=== PATIENT | female | born 1955 | race Caucasian/White ===

== ENCOUNTER 2022-01-28 14:34 | Inpatient (IN) | payer OTHER ==
[~2022-01-28] VITALS: Ht 167.6 cm; Wt 83.5 kg
[2022-01-28 14:34] VITALS: BP 92/39
--- NOTE | 2022-01-28 14:35 | NUR ---
TO ED 3 VIA EMS GURNEY.
[2022-01-28] MEDS ORDERED: cefTRIAXone 1,000 MG in DEXT 5% MINI-BAG PLUS 50 ML IV ONE (14:40)
--- NOTE | 2022-01-28 14:40 | NUR ---
INITAL CONTACT WITH PATIENT, BIB EMS GURNEY FOR INCREASE IN SOB. TACHYPNIC ON ARRIVAL. RHONCI HEARD BILATERALLY. PT IS ALERT TO NAME ONLY. IN BED FOR MSE.
[2022-01-28] MEDS ORDERED: methylPREDNISolone SS 125 MG/2 ML VIAL IVP ONE (14:50)
[2022-01-28] MEDS ORDERED: ALBUTEROL SULFATE/IPRATROPIU 3 ML SOL IH ONE (14:50)
[2022-01-28] MEDS ORDERED: ALBUTEROL 0.083% 2.5 MG/3 ML NEBU INH ONE (14:50)
[2022-01-28] MEDS ORDERED: cefTRIAXone 1,000 MG VIAL ONE (15:06)
[2022-01-28 15:15] LABS: HEMATOCRIT 24.7 % (36-48); HEMOGLOBIN 7.8 g/dL (12.0-16.0); MEAN CORPUSCULAR HEMOGLOBIN 28 pg (27-31); MEAN CORPUSCULAR HGB CONC 32 g/dL (33-37); PLATELET COUNT (AUTO) 414 K/uL (140-450); RED BLOOD CELL COUNT(AUTO) 2.74 MIL/uL (4.20-5.40); RED CELL DISTRIBUTION WIDTH 16.7 % (11.6-13.7); WHITE BLOOD COUNT (AUTO) 24.8 K/uL (4.8-10.8)
[2022-01-28 15:50] LABS: LYMPHOCYTES % (MANUAL) 11 % (20-46); MONOCYTES % (MANUAL) 1 % (5-12); MYELOCYTES % 1 % (0-0)
[2022-01-28 15:51] LABS: ALBUMIN 1.6 g/dL (3.4-5.0); ANION GAP 17.4 (8-16); CREATININE 1.4 mg/dL (0.6-1.3); POTASSIUM 5.4 mmol/L (3.5-5.1); TOTAL BILIRUBIN 0.5 mg/dL (0.0-1.0)
--- NOTE | 2022-01-28 16:55 | NUR ---
# 16 FR [place] catheter with 10 ml utilizing sterile technique. Immediate return of 1000 ml DARK CLOUDY urine noted. Bedside drainage bag placed below level of bladder. Urine sample collected and sent to lab. Pt tolerated procedure WELL.
[2022-01-28] MEDS ORDERED: MAGNESIUM OXIDE 400 MG TAB PO PRN (17:55)
[2022-01-28] MEDS ORDERED: ACETAMINOPHEN 325 MG TAB PO PRN (17:55)
[2022-01-28] MEDS ORDERED: HYDROcodone/APAP 5/325 MG 1 TAB TAB PO PRN (17:55)
[2022-01-28 18:15] LABS: BILIRUBIN,URINE 1+ (NEGATIVE); BLOOD, URINE 3+ (NEGATIVE); COLOR,URINE YELLOW (YELLOW); LEUKOCYTE ESTERASE ,URINE 3+ (NEGATIVE); NITRITE, URINE NEGATIVE (NEGATIVE); UGLUCOSE NEGATIVE (NEGATIVE)
[2022-01-28 18:23] LABS: APPEARANCE,URINE CLOUDY (CLEAR)
--- NOTE | 2022-01-28 18:30 | NUR ---
PT IN BED, PENDING ADMISSION. NO NEW ORDERS AT THIS TIME.
[2022-01-28 19:08] LABS: RBC,URINE 0-5 /HPF (0-5); WBC,URINE 80-100 /HPF (0-5)
--- NOTE | 2022-01-28 19:20 | NUR ---
REPORT TO RADHA WALL. ALL CARE TRASNFERRED.
[2022-01-28] MEDS ORDERED: GABA300C PO (21:10)
[2022-01-28] MEDS ORDERED: MORP15TE33 PO (21:10)
[2022-01-28] MEDS ORDERED: MULT-2171 PO (21:10)
[2022-01-28] MEDS ORDERED: OXYC5TAB4 PO (21:10)
[2022-01-28] MEDS ORDERED: ASCO500T95 PO (21:10)
[2022-01-28] MEDS ORDERED: METF-1139 PO (21:10)
[2022-01-28] MEDS ORDERED: SENN-73 PO (21:10)
[2022-01-28] MEDS ORDERED: IPRA3AMP2 IH (21:10)
[2022-01-28] MEDS ORDERED: AZITHROMYCIN 500 MG INJ VIAL IV ONE (21:12)
[2022-01-28] MEDS: NACL 0.9% 1,000 ML IV SCH (21:34)
[2022-01-28] MEDS: AZITHROMYCIN 500 MG in DEXTROSE 5% 250 ML IV SCH (21:37)
[2022-01-29] MEDS: MORPHINE SULFATE 4 MG/ML SYR IVP PRN ×4 (00:35→23:50)
--- NOTE | 2022-01-29 02:21 | NUR ---
PT RESTING IN BED AT THIS TIME
--- NOTE | 2022-01-29 04:10 | NUR ---
CHANGED PT AND REPOSITIONED HER. ALL NEEDS ADDRESSED AT THIS TIME.
[2022-01-29 06:47] LABS: ALBUMIN 1.5 g/dL (3.4-5.0); CARBON DIOXIDE 20.1 mmol/L (21-32); CREATININE 1.2 mg/dL (0.6-1.3); POTASSIUM 5.1 mmol/L (3.5-5.1); TOTAL BILIRUBIN 0.4 mg/dL (0.0-1.0)
[2022-01-29 08:22] LABS: BASOPHILS # (AUTO) 0.1 K/uL (0.00-0.22); BASOPHILS % (AUTO) 0.5 % (0.0-2.0); EOSINOPHILS # (AUTO) 0.7 K/uL (0-0.4); EOSINOPHILS % (AUTO) 2.9 % (0.0-4.0); HEMATOCRIT 23.2 % (36-48); HEMOGLOBIN 7.7 g/dL (12.0-16.0); LYMPHOCYTES # (AUTO) 1.2 K/uL (2.5-16.5); LYMPHOCYTES % (AUTO) 4.9 % (20.5-51.1); MEAN CORPUSCULAR HEMOGLOBIN 30 pg (27-31); MEAN CORPUSCULAR HGB CONC 33 g/dL (33-37); MEAN CORPUSCULAR VOLUME 90.5 fL (80-94); MONOCYTES # (AUTO) 0.5 K/uL (0.8-1.0); MONOCYTES % (AUTO) 2.2 % (1.7-9.3); NEUTROPHILS # (AUTO) 22.2 K/uL (1.8-7.7); NEUTROPHILS % (AUTO) 89.5 % (42.2-75.2); PLATELET COUNT (AUTO) 563 K/uL (140-450); RED BLOOD CELL COUNT(AUTO) 2.56 MIL/uL (4.20-5.40); RED CELL DISTRIBUTION WIDTH 16.5 % (11.6-13.7); WHITE BLOOD COUNT (AUTO) 24.7 K/uL (4.8-10.8)
--- NOTE | 2022-01-29 08:23 | NUR ---
Patient will be admitted to care of DR LITTLE. Admited to TELE. Will go to [id number]. Belongings list completed. Report to PAMELA GARCIA.
[2022-01-29 08:40] VITALS: BP 117/54
--- NOTE | 2022-01-29 08:40 | NUR ---
PT ARRIVED VIA GURNEY. REPORT GIVEN BY TONY GARCIA FROM ER. PT IS ALERT AND ORENTX3, ADMITTED FOR HYPOXIA. HX OF COPD, DEMENTIA, DM. PT IS CURRENTLY ON 2L OXYGEN VIA NC, HAS OSUNA CATHETER IN PLACE, DRAIN CLEAR YELLOW URINE. PT HAS IV ON LEFT HAND WITH 22G AND IV ON RIGHT HAND WITH 22G. IV ON LEFT SIDE IN INTACT AND PATENT, RUNNING NS AT 80ML/HR. IV ON RIGHT HAND DOES NOT WORK AT THIS TIME, WILL REMOVE SHORTLY. PT HAS STATE 4 ULCER ON SACRAL AREA, SKIN TEAR ON BOTH FEET AND SKIN ON LOWER EXTREMITIES. START ROCEPHIN 1000MG IN D5 50ML, 100ML/HR AT THIS TIME. PT IS STABLE.
--- NOTE | 2022-01-29 08:44 | NUR ---
PATIENT HAS BEEN SCREENED AND CATEGORIZED MODERATE NUTRITION RISK. PATIENT WILL BE SEEN WITHIN 3-5 DAYS OF ADMISSION. [address]
[2022-01-29] MEDS: DOCUSATE SODIUM 100 MG GELCAP PO SCH (08:45)
[2022-01-29] MEDS ORDERED: cefTRIAXone 1,000 MG VIAL ONE (08:48)
[2022-01-29] MEDS: NACL 0.9% 1,000 ML IV SCH ×2 (08:53→18:11)
[2022-01-29] MEDS: AZITHROMYCIN 500 MG in DEXTROSE 5% 250 ML IV SCH (10:19)
[2022-01-29] MEDS ORDERED: LORazepam 2 MG/ML VIAL IVP PRN (10:55)
--- NOTE | 2022-01-29 10:55 | NUR ---
INFORMED DR LITTLE PT IS VERY ANXIOUS AND CRYING CONSTANTLY, ORDERED ATIVAN 1MG IV Q 6 HOUR PRN FOR ANXIETY.
--- NOTE | 2022-01-29 11:17 | NUR ---
FNS CONSULT HAS BEEN RECEIVED FOR WOUNDS. PATIENT HAS BEEN RE-SCREENED HIGH RISK AND WILL BE SEEN TODAY. [address]
--- NOTE | 2022-01-29 11:22 | NUR ---
PT IS CRYING AND KICKING, STATED SHE IS PAIN IN HER BUTTOCK AREA, ADMINISTERED MORPHINE 4MG IVPUSH AT THIS TIME. Addendum: 01/29/22 at 1128 by Rigo Sierra RN BP WAS 117/89 PRIOR TO ADMIN MEDICATION. PT STATED PAIN 04/03
[2022-01-29 12:00] VITALS: BP 113/72
--- NOTE | 2022-01-29 13:24 | NUR ---
P.T. NOTES P.T. EVAL COMPLETED; REFER TO EVAL FOR DETAILS.
--- NOTE | 2022-01-29 13:55 | NUR ---
PT WAS DISRUPTIVE TO OTHER PT AND WAS MOVED TO ROOM 124A. DAUGHTER OF OTHER PATIENT COMPLAINING ABOUT THE PATIENT YELLING LOUDLY. PT IS UNABLE TO REDIRECT ATTENTION. PT DENIES PAIN. PT REFUSED TO EAT LUNCH, ONLY WANTS TO DRINK WATER. PT ATE A FEW BITES OF FOOD AND DRANK JUICE AND WATER. INFORMED INDUSTRIAL HYGIENIST AND SHE ADDED ENSURE TWICE DAILY AND BHUPENDRA, ALSO CHANGED IT TO CCHO 60 GRAM DIET.
--- NOTE | 2022-01-29 14:23 | NUR ---
01/29/22 RD INITIAL ASSESSMENT COMPLETED PLEASE REFER TO NUTRITION ASSESSMENT UNDER CARE ACTIVITY FOR ESTIMATED NUTRITIONAL NEEDS. 1. RECOMMEND CARDIAC/CCHO 60GM MECHANICAL SOFT DIET TO IMPROVE PO INTAKE 2. RECOMMEND GLUCERNA BID BHUPENDRA BID PER RD PROTOCOL 3. MONITOR PO INTAKE 4. RD TO FOLLOW-UP 2-3 DAYS; HIGH RISK [address]ILLICENT [address]
--- NOTE | 2022-01-29 14:57 | NUR ---
PT RESTING ON BED WITH 2L OXYGEN VIA NC, NO ACUTE DISTRESS NOTED. ALL SAFETY MEASURE IN PLACE, CALL LIGHT WITHIN REACH, WILL CONTINUE TO MONITOR.
--- NOTE | 2022-01-29 14:58 | NUR ---
WOUND CARE EVALUATION NOTE: SKIN ASSESSMENT DONE WITH PRIMARY RN ON THIS 66 Y/O PT ADMITTED TO [facility] WITH HYPOXIA AND INFECTED SACRALCOCCYX PRESSURE INJURY. PAST MEDICAL HX INCLUDES PAST MEDICAL HISTORY OF COPD, DEMENTIA, DM. ALL ABOVE INFORMATION OBTAINED FROM ADMISSION H&P. PT IS AWAKE VERBALIZES NEEDS, SKIN IS WARM AND DRY, BLE NO HAIR GROWTH, NO EDEMA. DORSAL PEDAL PULSES PRESENT AND NORMAL. CAPILLARY REFILLED <2 SEC. X 10 TOES. INCONTINENT OF BOWEL AND BLADDER. POC DISCUSSED WITH PT. PT WAS NOT PAYING ATTENTION. PT. CONTINUE TO CALLING FOR HELP DURING ASSESSMENT WHICH THER WERE 3 NURSING STAFF ATTENDING HER CARE.PLAN OF CARE DISCUSSED WITH PRIMARY RN AND CHARGE NURSE. GOAL IS TO PREVENT WOUND INFECTION WITH FECAL CROSS CONTAMINATION, POC DISCUSSED WITH DR. PEREZ WITH RECOMMENDATION OF SURGEON DEBRIDEMENT AND DIVERTING COLOSTOMY. INTEGUMENTARY: -MODERATE MOISTURE ASSOCIATED DERMATITIS WITH MULTIPLE SKIN EROSIONS FROM PERINEUM, BISI-ANAL AND EXTENDED TO BILATERAL MEDIAL AND POSTERIOR THIGHS, WOUND BEDS ARE RED AND MOIST, NO ODOR BISI-WOUND SKIN RD DENUDED, FURTHER DAMAGE INDICATED -PRESSURE INJURY STAGE 4 SACROCOCCYX INFECTED WOUND WITH ENTIRE MEASUREMENT INCLUDING BISI-WOUND SLOUGH/UN-STABLE ESCHAR TISSUE IS [id number] UNDERMINING 12 OCLOCK 3 CM AND TUNNEL WOUND TO 5 OCLOCK DIRECTION 9CM DEEP, WOUND BED 80% RED GRANULATION TISSUE, 20% SOFT YELLOW SLOUGH TISSUE, MODERATE AMOUNT PURULENT DRAINAGE,MILD ODOR, WOUND EDGE FLAT, BISI-WOUND SKIN UNSTABLE ESCHAR/SLOUGH TISSUE AND MAD EXTENDED TO BISI-ANAL -DTI LEFT LATERAL HEEL 3X2CM PURPLE WITH MUSHY INTACT SKIN RECOMMENDATIONS: -SURGEON CONSULT FOR DEBRIDEMENT AND POSSIBLE DIVERTING COLOSTOMY -BISI-CARE Q2H AND APPLY Z GUARD TO PERINEUM, BISI-ANAL BID AND PRN IF SOILING -APPLY Z GUARD TO BILATERAL MEDIAL AND POSTERIOR THIGHS BID AND PRN IF SOILING - CLEANSE SACRALCOCCYX WITH WOUND CLEANSING SOLUTION AND PACK WOUND WITH ONE PIECE MOIST HYDRAGEL KERLIX ROLL, COVER WITH DRY ABD PAD DRESSING SECURED WITH TAPE QD AND PRN IF SOILING -APPLY FORM DRESSING TO LEFT HEEL Q3D AND PRN IF SOILING AND OFFLOAD AREA -POSITIONING: TURN AND REPOSITION PATIENT Q 2H OR SOONER USE PILLOWS TO KEEP BONY PROMINENCES FROM DIRECT CONTACT WITH SURFACES USE REPOSITIONING WEDGES TO PROVIDE 30-DEGREE ANGLE FOR SIDE LYING POSITIONS OFFLOADING OR FOAM DRESSING TO ALL TUBING TO PREVENT MEDICAL DEVICES RELATED PRESSURE INJURY -RE-EVALUATING AND MANAGING INCONTINENCE MONITOR SKIN CONDITION DURING POSITION CHANGE DO NOT MASSAGE REDNESS, BONY PROMINENCES FREQUENT BISI-CARE AND PROVIDE BARRIER CREAMS PRN IF SOILING MOISTURE CONTROL BY OFFER BED TURNER/URINAL /ABSORBENT PAD TO WICK AND HOLD MOISTURE KEEP SKIN DRY AND PROTECT FROM FRICTION -MANAGE FRICTION/SHEAR/MOBILITY KEEP HOB AT THE LOWEST LEVEL OF ELEVATION NO MORE THAN 30 DEGREES UNLESS OTHERWISE CONTRAINDICATED USE LIFT SHEET OR TRANSFER DEVICE TO MOVE PATIENT AND PREVENT LATERAL SHEER. PROTECT HEELS, ELBOWS BONY PROMINENCES WITH SKIN BERRIES OR FOAM DRESSING IF EXPOSED TO FRICTION OFFLOAD BILATERAL HEELS BY PLACING PILLOWS UNDER CALVES AT ALL TIMES, UNLESS OTHERWISE CONTRAINDICATED -PRESSURE REDISTRIBUTION SURFACE THERAPY ALAN ISOFLEX JOSE ALFREDO MATTRESS -NUTRITION: PLEASE FOLLOW RD RECOMMENDATIONS AND OFFER NUTRITION SUPPLEMENTS IF ORDERED.
[2022-01-29] MEDS ORDERED: LORazepam 1 MG TAB PO PRN (15:10)
[2022-01-29] MEDS: FOAM DRESSING TP SCH (15:34)
--- NOTE | 2022-01-29 15:39 | NUR ---
INFORMED DR. LITTLE ABOUT THE PT'S EXCESSIVE FLUID INTAKE. PT KEEPS REQUESTING WATER EVERY TEN MIN. DR. LITTLE PUT ORDER FOR FLUID RESTRICTION OF 2000 ML/DAY.
[2022-01-29 16:00] VITALS: BP 100/61
--- NOTE | 2022-01-29 16:39 | NUR ---
PT IS VERY AGITATED, CRYING HYSTERICALLY. PT WAS GIVEN ATIVAN FOR ANXIETY. BP IS 105/65 PRIOR TO ADMINISTRATION OF MEDICATION.
--- NOTE | 2022-01-29 17:30 | NUR ---
PT IS ASKING FOR MORE WATER, INFORMED PT THAT MD PLACED HER ON FLUID RESTRICTION TO 2L PER DAY. PT IS MADE AWARE AT THIS TIME. PT IS RESTING ON BED, ON 2L OXYGEN VIA NC, NO DISTRESS NOTED. ALL SAFETY MEASURE IN PLACE, CALL LIGHT WITHIN REACH, WILL CONTINUE TO MONITOR.
--- NOTE | 2022-01-29 18:51 | NUR ---
CHECKED PT'S BLOOD SUGAR DUE TO THE EXCESSIVE WATER INTAKE. BLOOD SUGAR WAS 283. INFORMED DR. LITTLE AND ASKED IF WE COULD ADD THE INSULIN SLIDING SCALE AND ACCUCHECKS. WILL WAIT FOR RESPONSE.
--- NOTE | 2022-01-29 18:56 | NUR ---
PT RESTING ON BED, NO ACUTE DISTRESS NOTED, WILL ENDORSE TO MASONRY TEACHER FOR CONTINUE CARE. ALL SAFETY MEASURE IN PLACE, CALL LIGHT WITHIN REACH, WILL CONTINUE TO MONITOR.
--- NOTE | 2022-01-29 19:17 | NUR ---
ENDORSED TO SENIOR PROJECT ENGINEER NURSE FOR CONTINUITY OF CARE. PT IS STABLE. PLAN OF CARE DISCUSSED. ENDORSED BS OF 283 TO SENIOR PROJECT ENGINEER NURSE, ASKED HIM TO FOLLOW UP WITH THE MESSAGE THAT WAS SENT TO DR. LITTLE FOR SLIDING SCALE AND ACCUCHECK.
[2022-01-29 20:00] VITALS: BP 89/47
[2022-01-29] MEDS ORDERED: DEXTROSE 50% 50 ML SYR IVP PRN (20:35)
[2022-01-29] MEDS: BLOOD GLUCOSE MONITORING 1 DEV DEV FS SCH (21:58)
[2022-01-30] VITALS: BP 91/51
[2022-01-30] MEDS: Z-GUARD PASTE TP SCH ×2 (00:23→12:05)
[2022-01-30 04:00] VITALS: BP 92/53
[2022-01-30 06:33] LABS: HEMATOCRIT 24.5 % (36-48); HEMOGLOBIN 7.7 g/dL (12.0-16.0); MEAN CORPUSCULAR HEMOGLOBIN 28 pg (27-31); MEAN CORPUSCULAR HGB CONC 32 g/dL (33-37); MEAN CORPUSCULAR VOLUME 89.2 fL (80-94); PLATELET COUNT (AUTO) 400 K/uL (140-450); RED BLOOD CELL COUNT(AUTO) 2.75 MIL/uL (4.20-5.40); RED CELL DISTRIBUTION WIDTH 16.4 % (11.6-13.7)
[2022-01-30 06:42] LABS: ALBUMIN 1.4 g/dL (3.4-5.0); ANION GAP 10.6 (8-16); CARBON DIOXIDE 22.1 mmol/L (21-32); CREATININE 0.6 mg/dL (0.6-1.3); MAGNESIUM 2.2 mg/dL (1.8-2.4); POTASSIUM 3.7 mmol/L (3.5-5.1); TOTAL BILIRUBIN 0.3 mg/dL (0.0-1.0)
[2022-01-30] MEDS: NACL 0.9% 1,000 ML IV SCH ×2 (06:47→19:55)
[2022-01-30] MEDS: BLOOD GLUCOSE MONITORING 1 DEV DEV FS SCH ×4 (06:47→21:41)
--- NOTE | 2022-01-30 07:15 | NUR ---
RECEIVED REPORT FROM CUSTOMER SUPPORT CONSULTANT FOR CONTINUITY CARE. PT RESTING ON BED, MUMBLING AND YELLING PERIOD. PT ALERT AND ORIENT X2. PT ON 2L OXYGEN VIA NC. OSUNA CATHETER IN PLACE, IV ON LEFT HAND INTACT AND PATENT. POINT OF CARE DISCUSSED, ALL SAFETY MEASURE IN PLACE, CALL LIGHT WITHIN REACH, WILL CONTINUE TO MONITOR.
[2022-01-30 07:49] LABS: WHITE BLOOD COUNT (AUTO) 31.4 K/uL (4.8-10.8)
[2022-01-30 07:50] LABS: BASOPHILS % (AUTO) 0.2 % (0.0-2.0); EOSINOPHILS % (AUTO) 0.1 % (0.0-4.0); LYMPHOCYTES # (AUTO) 1.3 K/uL (2.5-16.5); LYMPHOCYTES % (AUTO) 4.1 % (20.5-51.1); MONOCYTES % (AUTO) 3.4 % (1.7-9.3); NEUTROPHILS # (AUTO) 28.8 K/uL (1.8-7.7); NEUTROPHILS % (AUTO) 92.2 % (42.2-75.2)
[2022-01-30 07:52] LABS: LYMPHOCYTES % (MANUAL) 5 % (20-46); MONOCYTES % (MANUAL) 3 % (5-12)
[2022-01-30 07:53] LABS: PLATELET COUNT,MANUAL 399 K/uL (150-450)
--- NOTE | 2022-01-30 07:54 | NUR ---
NOTIFIED DR LITTLE REGARDING CRITICAL LAB VALUE FOR WBC 31.2, WAITING MD TO CALL BACK FOR ORDERS.
[2022-01-30 08:00] VITALS: BP 108/57
[2022-01-30] MEDS: DOCUSATE SODIUM 100 MG GELCAP PO SCH (08:07)
--- NOTE | 2022-01-30 08:15 | NUR ---
MEDICATION ROCEPHIN ADMINISTERED VIA IV PER MD ORDERED AT THIS TIME. PT TOLERATED WELL. PT ORIENT AND ALERT X2. PT CURRENT ON CONTACT PRECAUTION FOR POSITIVE MRSA. BACTROBAN NASAL APPLIED TO NOSE MD ORDERED. CHLORHEXIDINE GLUCONATE 2% APPLIED TO BODY ORDERED. ALL SAFETY MEASURE IN PLACE, CALL LIGHT WITHIN REACH, WILL CONTINUE TO MONITOR.
--- NOTE | 2022-01-30 08:17 | NUR ---
REPORT TO DR LITTLE PT HAS CRITICAL LAB RESULT CAME BACK POSITIVE FOR MRSA, WILL PLACE PT ON CONTACT PRECAUTION.
[2022-01-30] MEDS: CHLORHEXADINE GLUC 2% CLOTH TP SCH (08:54)
[2022-01-30] MEDS: AZITHROMYCIN 500 MG in DEXTROSE 5% 250 ML IV SCH (08:54)
[2022-01-30] MEDS: MUPIROCIN CA NASAL 2% 1GM TUBE NS SCH (08:55)
--- NOTE | 2022-01-30 09:00 | NUR ---
MEDICATION ADMINISTERED PER MD ORDER, PT IS TOLERATED WELL. PT ON 2L OXYGEN VIA NC, NO SOB NOTED. ALL SAFETY MEASURE IN PLACE, CALL LIGHT WITHIN REACH, WILL CONTINUE TO MONITOR.
[2022-01-30] MEDS ORDERED: VANCOMYCIN PER PHARMACY MC PRN (09:20)
[2022-01-30] MEDS: VANCOMYCIN 750 MG in DEXTROSE 5% 250 ML IV SCH ×2 (10:43→23:00)
--- NOTE | 2022-01-30 11:00 | NUR ---
PT RESTING ON BED, ALERT AND ORIENT X2, PT ASK FOR WATER, ASSIST PT DRINK WATER, REPOSITIONED PT. ALL SAFETY MEASURE IN PLACE, CALL LIGHT WITHIN REACH, WILL CONTINUE TO MONITOR.
--- NOTE | 2022-01-30 11:30 | NUR ---
BS 198, ADMINISTERED 2 UNIT INSULIN ORDERED.
[2022-01-30] MEDS: INSULIN LISPRO SLIDING SCALE 100 UNITS/ML VIAL SUBQ PRN ×3 (11:39→21:42)
[2022-01-30 12:00] VITALS: BP 91/52
[2022-01-30] MEDS: SKINTEGRITY HYDROGEL TP SCH (12:05)
--- NOTE | 2022-01-30 12:14 | NUR ---
CLEANED PT AND APPLIED BACTROBAN PINT TO NARES AND APPLIED CHLORHEXIDINE GLUCONATE 2% TO PT'S BODY ORDERED, WILL CONTINUE ON CONTACT PRECAUTION, ALL SAFETY MEASURE IN PLACE, CALL LIGHT WITHIN REACH, WILL CONTINUE TO MONITOR.
--- NOTE | 2022-01-30 13:34 | NUR ---
RECEIVED REPORT FROM LAB PT IS POSITIVE FOR E COLI, NOTIFIED DR ANABEL MD SEE PT AT BEDSIDE. PLACED PT ON CONTACT PRECAUTION.
[2022-01-30] MEDS: MORPHINE SULFATE 4 MG/ML SYR IVP PRN (15:47)
--- NOTE | 2022-01-30 15:48 | NUR ---
PT STATES THE PAIN AT A SCALE OF 10/10 IN HER LEGS AND BACK. PT WAS GIVEN MORPHINE FOR PAIN. BP WAS 106/53 PRIOR TO ADMINISTRATION OF MEDICATION.
[2022-01-30 16:00] VITALS: BP 106/53
--- NOTE | 2022-01-30 17:15 | NUR ---
PT LYING ON BED, HAS PERIOD MUMBLING, ON 2L OXYGEN VIA NC, NO ACUTE DISTRESS NOTED AT THIS TIME, REPOSITIONED PT, EDUCATED PT TO USE CALL LIGHT IF SHE NEED ANY HELP. BS 222, WILL ADMINISTER INSULIN ORDERED.
--- NOTE | 2022-01-30 19:20 | NUR ---
ENDORSED PT TO BLEACH RANGE OPERATOR NURSE FOR CONTINUITY OF CARE. PT IS STABLE. PLAN OF CARE DISCUSSED.
--- NOTE | 2022-01-30 19:30 | NUR ---
RECEIVED BEDSIDE REPORT FROM DAY SHIFT RN FOR CONTINUITY OF CARE. PT IS AWAKE WITH CONFUSION. AAOX2 TO NAME AND PLACE. PT IS ON NC 2L BUT PT LIKES TO REMOVE IT. PT HAS FC DRAINING LIGHT JACQUES URINE. PT HAS LEFT HAND 22 GAUGE WITH NS 80 ML/HR. PT HAS SACRAL WOUND. PLAN OF CARED DISCUSSED. COMMUNICATION BOARD UPDATED. WILL CONTINUE TO MONITOR THE PT.
[2022-01-30 20:00] VITALS: BP 89/49
[2022-01-30] MEDS ORDERED: NACL 0.9% 500 ML IV ONE (20:45)
--- NOTE | 2022-01-30 20:50 | NUR ---
PT BP IS 88/49. MESSAGED DR. PEREZ. DOCTOR ORDERED NS 500ML BOLUS AND ALBUMIN 25% Q8H X3 DOSES IN 100ML.
[2022-01-30] MEDS: ALBUMIN HUMAN 25% 100 ML IV SCH (21:42)
[2022-01-31] VITALS: BP 96/45
[2022-01-31] MEDS: Z-GUARD PASTE TP SCH ×2 (01:11→14:09)
--- NOTE | 2022-01-31 02:03 | NUR ---
PT IS SLEEPING IN BED. PT IS ON RA NOT IN ANY ACUTE DISTRESS. IVF RUNNING PER MD ORDER. CALL LIGHT WITHIN REACH. ALL SAFETY MEASURES TAKEN. WILL CONTINUE TO MONITOR THE PT.
[2022-01-31 04:00] VITALS: BP 99/53
[2022-01-31] MEDS: ALBUMIN HUMAN 25% 100 ML IV SCH ×2 (05:18→14:07)
--- NOTE | 2022-01-31 05:25 | NUR ---
ALBUMEN GIVEN SCHEDULE. PT WAS CLEANED AND CHANGED. PT IS NOT IN ANY RESPIRATORY DISTRESS. CALL LIGHT WITHIN REACH. ALL SAFETY MEASURES TAKEN. WILL CONTINUE TO MONITOR THE PT.
[2022-01-31] MEDS: INSULIN LISPRO SLIDING SCALE 100 UNITS/ML VIAL SUBQ PRN (06:30)
[2022-01-31] MEDS: BLOOD GLUCOSE MONITORING 1 DEV DEV FS SCH ×4 (06:30→20:42)
--- NOTE | 2022-01-31 07:14 | NUR ---
ENDORSED PT TO DAY SHIFT RN FOR CONTINUITY OF CARE. PT IS STABLE.
[2022-01-31 08:00] VITALS: BP 120/45
--- NOTE | 2022-01-31 08:00 | NUR ---
RECEIVE ENDORSEMENT FROM PM SHIFT NURSE THAT PATIENT IN BED, AWAKE BUT CONFUSED. PIV L. HAND 24G IV NS @80ML/HR INFUSING. PATIENT IS ON 2 LITER FLUID RESTRICTION, 2 LITER OXYGEN VIA NC. STAGE 4 WOUND AT SACRAL/COCCYX. WILL CONTINUE TO MONITOR.
[2022-01-31] MEDS: MUPIROCIN CA NASAL 2% 1GM TUBE NS SCH (08:20)
[2022-01-31] MEDS: CHLORHEXADINE GLUC 2% CLOTH TP SCH (08:20)
[2022-01-31] MEDS: NACL 0.9% 1,000 ML IV SCH ×2 (08:25→20:21)
[2022-01-31 09:11] LABS: ALBUMIN 2.3 g/dL (3.4-5.0); ANION GAP 10.8 (8-16); CARBON DIOXIDE 21.5 mmol/L (21-32); CREATININE 0.5 mg/dL (0.6-1.3); MAGNESIUM 1.8 mg/dL (1.8-2.4); POTASSIUM 3.3 mmol/L (3.5-5.1); TOTAL BILIRUBIN 0.4 mg/dL (0.0-1.0)
[2022-01-31 09:51] LABS: HEMATOCRIT 23.7 % (36-48); HEMOGLOBIN 7.3 g/dL (12.0-16.0); MEAN CORPUSCULAR HEMOGLOBIN 27 pg (27-31); MEAN CORPUSCULAR HGB CONC 31 g/dL (33-37); MEAN CORPUSCULAR VOLUME 88.9 fL (80-94); PLATELET COUNT (AUTO) 366 K/uL (140-450); RED BLOOD CELL COUNT(AUTO) 2.67 MIL/uL (4.20-5.40); RED CELL DISTRIBUTION WIDTH 16.4 % (11.6-13.7); WHITE BLOOD COUNT (AUTO) 21.1 K/uL (4.8-10.8)
[2022-01-31] MEDS: DOCUSATE SODIUM 100 MG GELCAP PO SCH (09:57)
[2022-01-31 12:00] VITALS: BP 116/50
[2022-01-31] MEDS ORDERED: VANCOMYCIN 1,000 MG in DEXTROSE 5% 250 ML IV SCH (12:00)
[2022-01-31] MEDS: SKINTEGRITY HYDROGEL TP SCH (13:00)
[2022-01-31 13:50] LABS: BASOPHILS % (AUTO) 0.2 % (0.0-2.0); EOSINOPHILS % (AUTO) 0.2 % (0.0-4.0); LYMPHOCYTES % (AUTO) 7.8 % (20.5-51.1); MONOCYTES % (AUTO) 3.9 % (1.7-9.3); NEUTROPHILS % (AUTO) 87.9 % (42.2-75.2); PLATELET COUNT,MANUAL 378 K/uL (150-450)
[2022-01-31 13:51] LABS: LYMPHOCYTES # (AUTO) 1.6 K/uL (2.5-16.5); LYMPHOCYTES % (MANUAL) 8 % (20-46); MONOCYTES # (AUTO) 0.8 K/uL (0.8-1.0); MONOCYTES % (MANUAL) 7 % (5-12); NEUTROPHILS # (AUTO) 17.8 K/uL (1.8-7.7)
[2022-01-31 16:00] VITALS: BP 112/60
--- NOTE | 2022-01-31 19:49 | NUR ---
ENDORSE PT TO PM SHIFT NURSE THAT PATIENT IN BED, AWAKE BUT CONFUSED. PIV L. HAND 24G IV NS @80ML/HR INFUSING. PATIENT IS ON ROOM AIR AT THIS TIME (SUPPOSE ON 2 LITER OXYGEN VIA NC) 2 LITER FLUID RESTRICTION . STAGE 4 WOUND AT SACRAL/COCCYX DRESSING CHANGED
[2022-01-31 20:00] VITALS: BP 110/55
--- NOTE | 2022-01-31 20:21 | NUR ---
PATIENT WOULD NOT ALLOW ME TO CHECK O2 SATURATION. PATIENT IS CONFUSED. NO SOB NOTED
[2022-01-31] MEDS: POTASSIUM CHLORIDE 10 MEQ TABER PO PRN (20:22)
[2022-01-31] MEDS: MORPHINE SULFATE 4 MG/ML SYR IVP PRN (20:22)
[2022-01-31] MEDS: ERTAPENEM SODIUM 1,000 MG in NACL 0.9% 50 ML IV SCH (22:00)
[2022-02-01] VITALS: BP 142/84
[2022-02-01] MEDS: Z-GUARD PASTE TP SCH ×2 (00:12→13:07)
[2022-02-01] MEDS ORDERED: ERTAPENEM SODIUM 1,000 MG in NACL 0.9% 50 ML IV SCH (00:40)
[2022-02-01] MEDS ORDERED: MEROPENEM 500 MG in NACL 0.9% 50 ML IV SCH ×2 (03:00→05:00)
[2022-02-01 04:00] VITALS: BP 135/82
[2022-02-01] MEDS ORDERED: MEROPENEM 500 MG VIAL IV ONE (04:28)
[2022-02-01] MEDS: BLOOD GLUCOSE MONITORING 1 DEV DEV FS SCH ×4 (06:32→21:00)
[2022-02-01 07:34] LABS: ALBUMIN 2.3 g/dL (3.4-5.0); CARBON DIOXIDE 23.9 mmol/L (21-32); CREATININE 0.4 mg/dL (0.6-1.3); MAGNESIUM 1.4 mg/dL (1.8-2.4); TOTAL BILIRUBIN 0.6 mg/dL (0.0-1.0)
[2022-02-01 07:41] LABS: POTASSIUM 2.9 mmol/L (3.5-5.1)
[2022-02-01 07:53] LABS: BASOPHILS % (AUTO) 0.2 % (0.0-2.0); EOSINOPHILS % (AUTO) 0.3 % (0.0-4.0); HEMATOCRIT 27.5 % (36-48); HEMOGLOBIN 8.7 g/dL (12.0-16.0); LYMPHOCYTES % (AUTO) 11.3 % (20.5-51.1); MEAN CORPUSCULAR HEMOGLOBIN 27 pg (27-31); MEAN CORPUSCULAR HGB CONC 31 g/dL (33-37); MEAN CORPUSCULAR VOLUME 87.2 fL (80-94); MONOCYTES # (AUTO) 0.9 K/uL (0.8-1.0); MONOCYTES % (AUTO) 4.9 % (1.7-9.3); NEUTROPHILS % (AUTO) 83.3 % (42.2-75.2); PLATELET COUNT (AUTO) 413 K/uL (140-450); RED BLOOD CELL COUNT(AUTO) 3.16 MIL/uL (4.20-5.40); RED CELL DISTRIBUTION WIDTH 16.4 % (11.6-13.7)
[2022-02-01 08:00] VITALS: BP 165/72
[2022-02-01] MEDS: MUPIROCIN CA NASAL 2% 1GM TUBE NS SCH (08:10)
[2022-02-01] MEDS: CHLORHEXADINE GLUC 2% CLOTH TP SCH (08:10)
[2022-02-01] MEDS: DOCUSATE SODIUM 100 MG GELCAP PO SCH (08:11)
[2022-02-01] MEDS: KCL 20 MEQ/WATER INJ PREMIX 200 ML IV PRN (08:18)
[2022-02-01] MEDS: FOAM DRESSING TP SCH (09:16)
[2022-02-01] MEDS: NACL 0.9% 1,000 ML IV SCH ×2 (10:14→21:55)
[2022-02-01 12:00] VITALS: BP 144/72
[2022-02-01] MEDS: SKINTEGRITY HYDROGEL TP SCH (13:07)
[2022-02-01] MEDS: MEROPENEM 1,000 MG in NACL 0.9% 100 ML IV SCH ×2 (13:09→21:00)
--- NOTE | 2022-02-01 13:29 | NUR ---
DC [age] YRS OLD FEMALE PATIENT WAS ADMITTED FROM [facility] WITH A DX OF HYPOXIA. CXR SHOWED ATELECTASIS, RAPID COVID TEST NEGATIVE. ON O2 2L/NC SATING 96%. ADMINISTERED IVF, IV ABX MEROPENEM AND CONTINUED HOME MEDS. URINE CULTURE SHOWED ESBL OF THE URINE , CONTINUE WITH IV ABX. CONSULTED WITH SURGEON AND ID FOR SACRAL WOUND. DC PLAN TO RETURN TO [facility] WHEN STABLE. CM TO FOLLOW Addendum: 02/04/22 at 1058 by Patricia Mcgill RN DC PLANNING: PATIENT IS RETURNING TO [facility] ([facility]) ROOM 223 a NUMBER TO GIVE REPORT [phone]. ARRANGED TRANSPORT WITH [facility] [place] [facility] TIME 1400 NOTIFIED JORDY HAUSER. CM TO FOLLOW
--- NOTE | 2022-02-01 13:49 | NUR ---
02/01/22 RD INITIAL ASSESSMENT COMPLETED PLEASE REFER TO NUTRITION ASSESSMENT UNDER CARE ACTIVITY FOR ESTIMATED NUTRITIONAL NEEDS. 1. CONTINUE CARDIAC MECHANICAL SOFT DIET WITH GLUCERNA BID BHUPENDRA BID TOLERATED 2. CONTINUE TO MONITOR PO INTAKE 3. CONTINUE TO MONITOR BLOOD GLUCOSE LEVELS 4. RD TO FOLLOW-UP 2-3 DAYS, HIGH RISK [address]
[2022-02-01 16:00] VITALS: BP 151/89
[2022-02-01] MEDS: MAG SULF 2000 MG/WATER PREMIX 50 ML IV PRN (17:44)
--- NOTE | 2022-02-01 19:40 | NUR ---
ENDORSE PT TO PM SHIFT NURSE THAT PATIENT IN BED, AWAKE BUT CONFUSED. PIV L. HAND 24G IV NS @80ML/HR INFUSING. PATIENT IS ON ROOM AIR AT THIS TIME, ON 2 LITER FLUID RESTRICTION . STAGE 4 WOUND AT SACRAL/COCCYX DRESSING CHANGED
[2022-02-01 20:00] VITALS: BP 147/66
[2022-02-01] MEDS: LINEZOLID 600MG PREMIX 300 ML IV SCH (22:56)
[2022-02-01] MEDS: ONDANSETRON 4 MG/2 ML VIAL IVP PRN (23:33)
[2022-02-02] VITALS: BP 135/70
[2022-02-02] MEDS: MORPHINE SULFATE 4 MG/ML SYR IVP PRN ×3 (01:10→23:16)
[2022-02-02] MEDS: Z-GUARD PASTE TP SCH ×2 (01:52→13:00)
[2022-02-02 04:00] VITALS: BP 123/69
[2022-02-02] MEDS: MEROPENEM 1,000 MG in NACL 0.9% 100 ML IV SCH ×3 (05:08→21:50)
[2022-02-02 06:37] LABS: ALBUMIN 2.1 g/dL (3.4-5.0); ANION GAP 13.5 (8-16); CARBON DIOXIDE 25.1 mmol/L (21-32); CREATININE 0.4 mg/dL (0.6-1.3); MAGNESIUM 1.5 mg/dL (1.8-2.4); TOTAL BILIRUBIN 0.6 mg/dL (0.0-1.0)
[2022-02-02 06:44] LABS: POTASSIUM 2.6 mmol/L (3.5-5.1)
--- NOTE | 2022-02-02 06:56 | NUR ---
PATIENT HAS A CRITICAL VALUE POTASSIUM 2.6. MD Walden notified. Patient also has blood transfusion which was ordered 08/04 but was not put up there is no consent as patient is not capable of consenting. Patient HB 8.6.To pass on to AM shift RN to contact family on the issue of consent, OTHERWISE PATIENT IS STABLE WITH NORMAL VITALS
[2022-02-02 08:00] VITALS: BP 100/48
[2022-02-02] MEDS: CHLORHEXADINE GLUC 2% CLOTH TP SCH (08:20)
[2022-02-02] MEDS: MUPIROCIN CA NASAL 2% 1GM TUBE NS SCH (08:20)
--- NOTE | 2022-02-02 08:30 | NUR ---
RECEIVED REPORT FROM COMMUNITY AMBASSADOR NURSE FOR CONTINUITY OF CARE. PT AWAKE IN BED. BREATHING SYMMETRICAL ON ROOM AIR SATING AT 95% CALL LIGHT WITHIN REACH. ALL SAFETY MEASURES IN PLACE
[2022-02-02 09:21] LABS: BASOPHILS # (AUTO) 0.1 K/uL (0.00-0.22); BASOPHILS % (AUTO) 0.5 % (0.0-2.0); EOSINOPHILS # (AUTO) 0.1 K/uL (0-0.4); EOSINOPHILS % (AUTO) 0.3 % (0.0-4.0); HEMATOCRIT 28.3 % (36-48); HEMOGLOBIN 8.9 g/dL (12.0-16.0); LYMPHOCYTES # (AUTO) 1.5 K/uL (2.5-16.5); LYMPHOCYTES % (AUTO) 7.6 % (20.5-51.1); MEAN CORPUSCULAR HEMOGLOBIN 28 pg (27-31); MEAN CORPUSCULAR HGB CONC 32 g/dL (33-37); MONOCYTES # (AUTO) 0.9 K/uL (0.8-1.0); MONOCYTES % (AUTO) 4.6 % (1.7-9.3); NEUTROPHILS # (AUTO) 17.1 K/uL (1.8-7.7); PLATELET COUNT (AUTO) 388 K/uL (140-450); RED BLOOD CELL COUNT(AUTO) 3.18 MIL/uL (4.20-5.40); RED CELL DISTRIBUTION WIDTH 16.3 % (11.6-13.7); WHITE BLOOD COUNT (AUTO) 19.6 K/uL (4.8-10.8)
--- NOTE | 2022-02-02 09:32 | NUR ---
PT TRANSFERRED TO [facility]
[2022-02-02] MEDS: ONDANSETRON 4 MG/2 ML VIAL IVP PRN (09:41)
[2022-02-02] MEDS: LINEZOLID 600MG PREMIX 300 ML IV SCH (09:45)
[2022-02-02] MEDS: DOCUSATE SODIUM 100 MG GELCAP PO SCH (09:45)
[2022-02-02] MEDS: BLOOD GLUCOSE MONITORING 1 DEV DEV FS SCH ×4 (09:50→21:53)
--- NOTE | 2022-02-02 10:45 | NUR ---
FDI REPORT RECEIVED NOT APPLICABLE D/T PT FROM [facility]. [address]
[2022-02-02] MEDS: NACL 0.9% 1,000 ML IV SCH ×2 (11:10→22:59)
[2022-02-02] MEDS: MAG SULF 2000 MG/WATER PREMIX 50 ML IV PRN (11:11)
[2022-02-02 12:00] VITALS: BP 141/71
[2022-02-02] MEDS ORDERED: POTASSIUM CHLORIDE 10 MEQ TABER PO SCH (12:00)
--- NOTE | 2022-02-02 12:06 | NUR ---
DR TURNER MADE AWARE THAT PT REFUSED PO KDUR TABLETS EARLIER, ORDER MADE.
[2022-02-02] MEDS: SKINTEGRITY HYDROGEL TP SCH (13:00)
[2022-02-02] MEDS: INSULIN LISPRO SLIDING SCALE 100 UNITS/ML VIAL SUBQ PRN (13:17)
[2022-02-02] MEDS: KCL 20 MEQ/WATER INJ PREMIX 200 ML IV PRN (15:45)
--- NOTE | 2022-02-02 15:46 | NUR ---
1ST BAG OF K RIDER INFUSING FOR K LEVEL 2.6
[2022-02-02 16:00] VITALS: BP 124/56
[2022-02-02] MEDS ORDERED: VANCOMYCIN PER PHARMACY MC PRN (16:40)
--- NOTE | 2022-02-02 17:00 | NUR ---
WOUND CARE PROVIDED.
--- NOTE | 2022-02-02 18:20 | NUR ---
SECOND BAG OF IV K+ RIDER IN PROGRESS. THIRD BAG TO FOLLOW.
--- NOTE | 2022-02-02 18:25 | NUR ---
PATIENT EATING DINNER. PERNELL, IN IMAGING IS REQUESTING TO BE CALLED WHEN PATIENT IS THROUGH EATING SO PATIENT CAN BE TAKEN FOR ORDERED CT SCAN. PER PATIENT, "I DON'T WANT TO GO, THEY DID IT ALREADY." EDUCATION PROVIDED TO PATIENT RE ORDERED PROCEDURE. PATIENT IS STILL STATING REFUSAL TO GO TO IMAGING DEPARTMENT.
--- NOTE | 2022-02-02 19:40 | NUR ---
PERNELL IN IMAGING INFORMED RE PATIENT'S REFUSAL TO BE TAKEN FOR CT SCAN.
--- NOTE | 2022-02-02 19:50 | NUR ---
THIS PM IV VANCOMYCIN DOSE TO BE ADMIN WHEN K+ RIDER INFUSION COMPLETED. PLAN OF CARE CONTINUED AND SAFETY MAINTAINED. PATIENT ENDORSED TO NURSING PROGRAM DIRECTOR NURSE FOR CONTINUITY OF CARE.
[2022-02-02] MEDS ORDERED: KCL 20 MEQ/WATER INJ PREMIX 100 ML IV SCH (20:00)
--- NOTE | 2022-02-02 20:00 | NUR ---
RECEIVE IN BED IS ALERT ON CONTACT ISOLATION 2ND BAG OF KRIDER INFUSING REPOSITIONED SACRAL DRESSING IS INTACT REPOSITIONED MADE COMFORTABLE IN BED
[2022-02-02] MEDS: VANCOMYCIN 1,000 MG in DEXTROSE 5% 250 ML IV SCH (20:20)
[2022-02-03 00:23] VITALS: BP 140/66
[2022-02-03] MEDS: Z-GUARD PASTE TP SCH ×2 (00:44→13:06)
[2022-02-03 04:00] VITALS: BP 146/69
[2022-02-03] MEDS: MEROPENEM 1,000 MG in NACL 0.9% 100 ML IV SCH ×3 (05:01→20:05)
[2022-02-03 05:44] LABS: BASOPHILS # (AUTO) 0.1 K/uL (0.00-0.22); BASOPHILS % (AUTO) 0.4 % (0.0-2.0); EOSINOPHILS # (AUTO) 0.3 K/uL (0-0.4); EOSINOPHILS % (AUTO) 1.8 % (0.0-4.0); HEMATOCRIT 26.2 % (36-48); HEMOGLOBIN 8.4 g/dL (12.0-16.0); LYMPHOCYTES # (AUTO) 2.4 K/uL (2.5-16.5); LYMPHOCYTES % (AUTO) 14.3 % (20.5-51.1); MEAN CORPUSCULAR HEMOGLOBIN 28 pg (27-31); MEAN CORPUSCULAR HGB CONC 32 g/dL (33-37); MEAN CORPUSCULAR VOLUME 88.9 fL (80-94); MONOCYTES % (AUTO) 5.8 % (1.7-9.3); NEUTROPHILS # (AUTO) 13.3 K/uL (1.8-7.7); NEUTROPHILS % (AUTO) 77.7 % (42.2-75.2); PLATELET COUNT (AUTO) 396 K/uL (140-450); RED BLOOD CELL COUNT(AUTO) 2.95 MIL/uL (4.20-5.40); RED CELL DISTRIBUTION WIDTH 16.6 % (11.6-13.7); WHITE BLOOD COUNT (AUTO) 17.1 K/uL (4.8-10.8)
[2022-02-03 06:18] LABS: CARBON DIOXIDE 25.2 mmol/L (21-32); CREATININE 0.4 mg/dL (0.6-1.3); POTASSIUM 3.2 mmol/L (3.5-5.1)
--- NOTE | 2022-02-03 07:30 | NUR ---
RECEIVED REPORT FROM CATH LAB NURSE FOR CONTINUITY OF CARE. PT IS SLEEPING, AROUSABLE BY VERBAL STIMULI. RESPIRATIONS EVEN AND UNLABORED ON ROOM AIR. NO DISTRESS NOTED. IV SITE ON LEFT HAND, SALINE LOCK AND RIGHT THUMB INFUSING NS AT 80ML/HR. PT WITH BILATERAL HEEL PROTECTORS. CALL LIGHT WITHIN REACH. SAFETY PRECAUTIONS IN PLACE. WILL CONTINUE TO MONITOR.
[2022-02-03 08:00] VITALS: BP 112/55
[2022-02-03] MEDS: BLOOD GLUCOSE MONITORING 1 DEV DEV FS SCH ×4 (08:01→20:04)
--- NOTE | 2022-02-03 08:08 | NUR ---
BLOOD SUGAR CHECK DONE. BS 99. NO INSULIN COVERAGE NEEDED.
[2022-02-03] MEDS: MUPIROCIN CA NASAL 2% 1GM TUBE NS SCH (08:20)
[2022-02-03] MEDS: CHLORHEXADINE GLUC 2% CLOTH TP SCH (08:20)
[2022-02-03] MEDS: DOCUSATE SODIUM 100 MG GELCAP PO SCH (10:02)
[2022-02-03] MEDS: POTASSIUM CHLORIDE 10 MEQ TABER PO PRN (10:10)
--- NOTE | 2022-02-03 10:27 | NUR ---
ADMINISTERED SCHEDULED MORNING MEDS. PT TEACHING GIVEN. PT VERBALIZED UNDERSTANDING. POTASSIUM 3.2. GAVE PRN KCL. NON-ADMIT CHLORHEXADINE AND BACTROBAN. PER ORDER GIVE FOR 5 DAYS, ALREADY GOT FULL DOSE 5X YESTERDAY. LEFT PT COMFORTABLY SITTING IN BED, EATING BREAKFAST. NO DISTRESS NOTED. CALL LIGHT WITHIN REACH. SAFETY PRECAUTIONS IN PLACE. WILL CONTINUE TO MONITOR.
[2022-02-03] MEDS: NACL 0.9% 1,000 ML IV SCH ×2 (12:03→23:27)
--- NOTE | 2022-02-03 12:10 | NUR ---
WOUND DRESSING CHANGE DONE. CHANGED PT LINENS. MAINTAINED PT CLEAN AND DRY. PT TOLERATED WELL. NO DISTRESS NOTED. CALL LIGHT WITHIN REACH. SAFETY PRECAUTIONS IN PLACE.
[2022-02-03] MEDS: VANCOMYCIN 1,000 MG in DEXTROSE 5% 250 ML IV SCH (12:20)
--- NOTE | 2022-02-03 12:20 | NUR ---
VANCOMYCIN ADMINISTERED BY
[2022-02-03] MEDS: MORPHINE SULFATE 4 MG/ML SYR IVP PRN ×3 (12:49→22:18)
--- NOTE | 2022-02-03 12:49 | NUR ---
PT COMPLAINED OF PAIN 9/10 ON SACRUM AREA. PRN PAIN MED ADMINISTERED BY RADHA ANDERSON.
[2022-02-03] MEDS: SKINTEGRITY HYDROGEL TP SCH (13:06)
--- NOTE | 2022-02-03 13:09 | NUR ---
BLOOD GLUCOSE CHECK DONE. NO COVERAGE NEEDED.
[2022-02-03 16:00] VITALS: BP 127/64
--- NOTE | 2022-02-03 16:13 | NUR ---
02/03/22 RD FOLLOW UP COMPLETED PLEASE REFER TO NUTRITION ASSESSMENT UNDER CARE ACTIVITY FOR ESTIMATED NUTRITIONAL NEEDS. 1. CONTINUE WITH CARDIAC MECHANICAL SOFT DIET BHUPENDRA BID TOLERATED 2. CONTINUE TO MONITOR PO INTAKE -PT REQUIRES FEEDING ASSISTANCE 3. CONTINUE TO MONITOR BLOOD GLUCOSE LEVELS 4. RD TO FOLLOW-UP 3-5 DAYS, MODERATE RISK MILLICENT S[address] RD
[2022-02-03] MEDS ORDERED: VANC1PIG IV (16:14)
[2022-02-03] MEDS ORDERED: MERO1PDS7 IV (16:14)
--- NOTE | 2022-02-03 17:03 | NUR ---
BLOOD GLUCOSE CHECK DONE. BS 150. NO INSULIN COVERAGE NEEDED. PT COMPLAINED OF PAIN 9/10 ON HER SACRAL AREA AND LEGS. PRN PAIN MED ADMINISTERED BY RADHA ANDERSON
--- NOTE | 2022-02-03 19:45 | NUR ---
ENDORSED PT TO DUPLICATE MAKER NURSE FOR CONTINUITY OF CARE. ALL NEEDS MET THROUGHOUT SHIFT. PT IS STABLE. PICC LINE CONSENT FORM ENDORSED TO DUPLICATE MAKER NURSE.
--- NOTE | 2022-02-03 19:46 | NUR ---
RECEIVED BEDSIDE REPORT FROM DAY RN. PT IS OBSERVED RESTING QUIETLY IN BED DENIES ANY COMPLAINTS. PT IS AAOX3. RESPIRATIONS EVEN AND UNLABORED ON ROOM AIR. IV SITE ON LEFT HAND24 G SALINE LOCK AND RIGHT THUMB 24G INFUSING NS AT 80ML/HR. PT WITH BILATERAL HEEL PROTECTORS. SACRAL ULCER DRESSING IS C/D/I. OSUNA CATH IN PLACE. POC REVIEWED WITH PT. PENDING PICC LINE INSERTION FOR CONT ABX. PT ON CONTACT ISO SIGN AT DOOR FOR +MRSA OF WOUND. CALL LIGHT WITHIN REACH. SAFETY PRECAUTIONS IN PLACE. WILL CONTINUE TO MONITOR.
[2022-02-03 20:00] VITALS: BP 133/58
--- NOTE | 2022-02-03 20:14 | NUR ---
PT RESTING IN BED. AAOX4. BS 111 NO COVERAGE NEEDED. SAMUEL MEDICATIONS GIVEN. ALL NEEDS MET. WILL CONTINUE TO MONITOR.
--- NOTE | 2022-02-03 22:06 | NUR ---
PICC LINE NURSE AT BEDSIDE INSERTING MIDLINE. WILL CONTINUE TO MONITOR.
--- NOTE | 2022-02-04 00:09 | NUR ---
ROUNDS MADE. PT APPEARS TO BE ASLEEP WITH EYES CLOSED. CHEST RISE AND FALL NOTED. WILL CONTINUE TO MONITOR.
[2022-02-04] MEDS: Z-GUARD PASTE TP SCH ×2 (00:29→13:55)
--- NOTE | 2022-02-04 02:02 | NUR ---
ROUNDS MADE. PT APPEARS TO BE ASLEEP WITH EYES CLOSED. CHEST RISE AND FALL NOTED. WILL CONTINUE TO MONITOR.
[2022-02-04 04:00] VITALS: BP 130/80
--- NOTE | 2022-02-04 04:00 | NUR ---
VITAL SIGNS ARE STABLE. ALL NEEDS MET.
[2022-02-04] MEDS: MEROPENEM 1,000 MG in NACL 0.9% 100 ML IV SCH ×2 (04:19→12:56)
[2022-02-04 05:57] LABS: BASOPHILS % (AUTO) 0.3 % (0.0-2.0); EOSINOPHILS # (AUTO) 0.2 K/uL (0-0.4); EOSINOPHILS % (AUTO) 1.5 % (0.0-4.0); HEMATOCRIT 24.8 % (36-48); LYMPHOCYTES # (AUTO) 2.7 K/uL (2.5-16.5); LYMPHOCYTES % (AUTO) 22.6 % (20.5-51.1); MEAN CORPUSCULAR HEMOGLOBIN 29 pg (27-31); MEAN CORPUSCULAR HGB CONC 32 g/dL (33-37); MEAN CORPUSCULAR VOLUME 88.6 fL (80-94); MONOCYTES # (AUTO) 1.1 K/uL (0.8-1.0); MONOCYTES % (AUTO) 9.1 % (1.7-9.3); NEUTROPHILS % (AUTO) 66.5 % (42.2-75.2); PLATELET COUNT (AUTO) 412 K/uL (140-450); RED CELL DISTRIBUTION WIDTH 16.8 % (11.6-13.7)
[2022-02-04] MEDS: VANCOMYCIN 1,000 MG in DEXTROSE 5% 250 ML IV SCH (06:13)
[2022-02-04] MEDS: BLOOD GLUCOSE MONITORING 1 DEV DEV FS SCH ×2 (06:25→11:30)
[2022-02-04 06:31] LABS: ANION GAP 9.4 (8-16); CREATININE 0.5 mg/dL (0.6-1.3); POTASSIUM 3.4 mmol/L (3.5-5.1)
--- NOTE | 2022-02-04 07:30 | NUR ---
BEDSIDE REPORT GIVEN TO DAY RN. PT IN STABLE CONDITION.
[2022-02-04 08:00] VITALS: BP 112/74
--- NOTE | 2022-02-04 08:00 | NUR ---
Patient's Plan of Care was discussed and reviewed with MURTAZA: JORDY
[2022-02-04] MEDS: FOAM DRESSING TP SCH (09:00)
[2022-02-04] MEDS: DOCUSATE SODIUM 100 MG GELCAP PO SCH (10:08)
[2022-02-04] MEDS: POTASSIUM CHLORIDE 10 MEQ TABER PO PRN (10:12)
--- NOTE | 2022-02-04 10:30 | NUR ---
ADMINISTERED SCHEDULED MORNING MEDS. PT REFUSED HEPARIN AND ONLY TOOK 10MEQ OF POTASSIUM FOR POTASSIUM LEVEL OF 3.4. PT TEACHING ABOUT MEDS GIVEN. EXPLAINED TO PT THE IMPORTANCE AND RISKS OF NOT TAKING HER MEDS. PT VERBALIZED UNDERSTANDING.
[2022-02-04 12:27] VITALS: BP 112/74
[2022-02-04] MEDS: NACL 0.9% 1,000 ML IV SCH (12:44)
[2022-02-04] MEDS: INSULIN LISPRO SLIDING SCALE 100 UNITS/ML VIAL SUBQ PRN (12:45)
--- NOTE | 2022-02-04 12:49 | NUR ---
BLOOD GLUCOSE CHECK DONE. BS 156. SLIDING SCALE INSULIN ADMINISTERED. MERREM GIVEN BY RADHA SCHAEFER. INFORMED PT ABOUT THE DC ORDER. PT VERBALIZED UNDERSTANDING.
[2022-02-04] MEDS: SKINTEGRITY HYDROGEL TP SCH (13:55)
--- NOTE | 2022-02-04 13:55 | NUR ---
WOUND DRESSING DONE. CHANGE PTS DIAPER, CLEAN PT. PT REMAINED CLEAN AND DRY. TOOK PHOTOS OF THE SACCRAL WOUND. PLACED ON FILE AT THE CHART.
--- NOTE | 2022-02-04 14:07 | NUR ---
GAVE REPORT TO RADHA ALVAREZ AT [facility].
--- NOTE | 2022-02-04 14:24 | NUR ---
DISCHARGE PAPERS DISCUSSED WITH THE PT. PT SITTING COMFORTABLY IN BED. BREATHING EVEN AND UNLABORED. NO DISTRESS NOTED. NO COMPLAINTS OF PAIN. CALL LIGHT WITHIN REACH. SAFETY PRECAUTIONS IN PLACE. AWAITING FOR PICK-UP.
--- NOTE | 2022-02-04 14:40 | NUR ---
DC PT TO [facility]. REMOVED ID WRIST BAND. PT LEFT WITH ELIZABET MIDLINE 2X LUMEN FOR ABX AND OSUNA CATHETER. BOTH INTACT AND PATENT. PT WHEELED BY TRANSPORT STAFF [facility]. ALL BELONGINGS TAKEN UPON DC. PT IS STABLE.
== END 2022-02-04 14:40 | DRG 871 ==
LOC: MED 14:34 → MTU 17:55
PROVIDERS: ADMIT Hospitalist; ATTEND Hospitalist
DX: A41.51 Sepsis due to Escherichia coli [E. coli] (principal); J96.00 Acute respiratory failure, unspecified whether with hypoxia or hypercapnia; L89.94 Pressure ulcer of unspecified site, stage 4; N39.0 Urinary tract infection, site not specified; N17.9 Acute kidney failure, unspecified; Z16.12 Extended spectrum beta lactamase (ESBL) resistance; E87.5 Hyperkalemia; L98.499 Non-pressure chronic ulcer of skin of other sites with unspecified severity; D64.9 Anemia, unspecified; Z20.822 Contact with and (suspected) exposure to COVID-19; L89.90 Pressure ulcer of unspecified site, unspecified stage; Z88.6 Allergy status to analgesic agent; Z79.899 Other long term (current) drug therapy
CPT/HCPCS: 36415; 71045; 80048; 80053; 80202; 81001; 82948; 83605; 83735; 83880; 84484; 85025; 86886; 86900; 86901; 86920; 87040; 87081; 87086; 87186; 93005; 94640; 96365; 96375; 99285; A6248; J0456; J0696; J1335; J1644; J2020; J2185; J2270; J2405; J2930; J3370; J3475; J3480; J7060; J7613; P9046; Q0092